=== PATIENT | female | born 1970 | race Caucasian/White ===

== ENCOUNTER → 2016-10-18 | Day surgery (SDC) | payer SELFPAY ==
[~2016-10-18] MED LIST: DESYREL50 MG; EFFEXOR75 M1 PO
--- NOTE | ~2016-10-18 | OR ---
Unit #: [id number] #: [id number] Patient: STEPHEN MONTES DE OCA [id number] [address] [place], [place] [address] [id number] MR#: [id number] NAME: STEPHEN MONTES DE OCA ROOM: Date of Procedure: 10/18/2016 Admission Date: 10/18/2016 Surgeon: Mikhail Peguero M.D. : 1970 Attending Physician: Mikhail Peguero M.D. Primary Care Physician: Pedro Mcdowell OPERATIVE REPORT PREOPERATIVE DIAGNOSIS Chronic obesity. POSTOPERATIVE DIAGNOSIS Chronic obesity. PROCEDURE PERFORMED Placement of intragastric endoscopic balloon. ANESTHESIA IV sedation. COMPLICATIONS None. INDICATIONS FOR PROCEDURE The patient is a 46-year-old lady with chronic morbid obesity. She presents for endoscopic balloon placement. DESCRIPTION OF PROCEDURE The patient was taken to the operating theater and placed in a left lateral decubitus position. IV sedation was initiated. EGD scope was passed under direct vision into the esophagus. Esophagus was grossly normal. Stomach showed a small hiatal hernia. There was no inflammation. Duodenum was normal. I then placed the intragastric balloon in the posterior esophagus. Under direct vision, this was guided down into the stomach. I then inflated with saline to a total of 640 mL. I then disconnected the insufflation tubing. I confirmed its placement with passing the scope past the band and then retroflexion confirmed it in the fundus. The patient tolerated the procedure well and sent to recovery room in good condition. Dictated by... Cathy Cassidy/anil TD: 10/19/2016 06:10 JOB #: [id number] Unit #: [id number] #: [id number] Patient: STEPHEN MONTES DE OCA OPERATIVE REPORT X Mikhail Peguero MD X PROCEDURE OPERATIVE NOTE
== END | disposition home or self-care (01) ==
LOC: COPS 10:35
DX: E66.01 Morbid (severe) obesity due to excess calories (principal); K44.9 Diaphragmatic hernia without obstruction or gangrene; Z68.33 Body mass index [BMI] 33.0-33.9, adult; Z79.899 Other long term (current) drug therapy; Z98.51 Tubal ligation status; Z98.890 Other specified postprocedural states
CPT/HCPCS: J2250